=== PATIENT | female | born 2000 | race Caucasian/White ===

== ENCOUNTER 2020-04-02 18:03 | Emergency (ER) | payer MEDICAID ==
[2020-04-02] MEDS ORDERED: IBUPROFEN 600 MG TABLET PO ONE (18:43)
--- NOTE | 2020-04-02 18:44 | ER Document Report ---
HPI - HPI Patient complains to provider of: Right foot pain Time Seen by Provider: 04/02/20 18:36 Notes: 19-year-old female to the emergency department with complaints of right foot pain that began after she twisted her foot. She states she was wrestling with her significant other when she went to put her foot down off of the bed that it turned underneath her. She states that she has not been able to bear weight because when she does it really hurts. She is not taking anything for the pain since it happened. Denies any other injuries. She did not hit her head or have any loss of consciousness. - ROS Systems Reviewed and Negative: Yes All other systems reviewed and negative - CONSTITUTIONAL Constitutional: DENIES: Fever, Chills - EENT EENT: DENIES: Sore Throat, Ear Pain, Congestion - NEURO Neurology: DENIES: Headache, Weakness - CARDIOVASCULAR Cardiovascular: DENIES: Chest pain - RESPIRATORY Respiratory: DENIES: Trouble Breathing, Coughing - GASTROINTESTINAL Gastrointestinal: DENIES: Abdominal Pain, Nausea, Patient vomiting, Diarrhea - MUSCULOSKELETAL Musculoskeletal: REPORTS: Extremity pain Notes: Right foot pain - DERM Skin Color: Normal Skin Problems: None Past Medical History - General Information source: Patient - Social History Smoking Status: Never Smoker Frequency of alcohol use: None Drug Abuse: None Family History: Reviewed & Not Pertinent Vertical Provider Document - CONSTITUTIONAL Agree With Documented VS: Yes Exam Limitations: No Limitations General Appearance: WD/WN, No Apparent Distress - HEENT HEENT: Atraumatic, Normocephalic, PERRLA - NECK Neck: Normal Inspection, Supple - RESPIRATORY Respiratory: Breath Sounds Normal, No Respiratory Distress. negative: Rales, Rhonchi, Wheezing - CARDIOVASCULAR Cardiovascular: Regular Rate, Regular Rhythm, No Murmur - GI/ABDOMEN Gastrointestinal: Abdomen Soft, Abdomen Non-Tender - MUSCULOSKELETAL/EXTREMETIES Notes: There is tenderness to palpation over the dorsum of the right foot with mild edema. Patient has pain with dorsiflexion and plantar flexion. Does have reduced strength to 4 out of 5 in both of those movements likely due to pain. She can wiggle all of her toes. Cap refill is less than 2 seconds. She has no tenderness to palpation over the right knee and right hip - NEURO Level of Consciousness: Awake, Alert Motor/Sensory: No Motor Deficit, No Sensory Deficit - DERM Integumentary: Warm, Dry Course - Re-evaluation Re-evalutation: 04/02/20 19:49 Impression: Right foot sprain. X-rays negative for fracture. We will go ahead and place an Anthony wrap and on crutches. We will have her perform RICE. We will send home with NSAIDs and have her follow-up with orthopedist. Patient agrees with the plan. - Vital Signs Vital signs: Temp Pulse Resp BP Pulse Ox 99.0 F 123 H 18 123/97 H 96 04/02/20 18:15 04/02/20 18:15 04/02/20 18:15 04/02/20 18:15 04/02/20 18:15 - Laboratory Laboratory results interpreted by me: 04/02/20 Foot X-Ray 04/02/20 18:43 IMPRESSION: NEGATIVE STUDY OF THE RIGHT FOOT. NO RADIOGRAPHIC EVIDENCE OF ACUTE INJURY. - Diagnostic Test Radiology reviewed: Image reviewed, Reports reviewed Procedures - Immobilization Right Foot Time completed: 19:50 Pre-Proc Neuro Vasc Exam: Normal Immobilizer type: Anthony wrap Performed by: PCT Post-Proc Neuro Vasc Exam: Normal Alignment checked and good: Yes Discharge - Discharge Clinical Impression: Right foot pain Right foot sprain Qualifiers: Encounter type: initial encounter Qualified Code(s): S93.601A - Unspecified sprain of right foot, initial encounter Condition: Stable Disposition: HOME, SELF-CARE Instructions: Sprain ([facility]), Ice Packs ([facility]) Additional Instructions: TAKE MEDICINES PRESCRIBED. RETURN IF WORSE. ICE THE ANKLE. FOLLOW UP WITH THE ORTHOPEDIST LISTED. Prescriptions: Naproxen [Naprosyn 375 Mg Tablet] 375 mg PO BID #20 tablet Referrals: BHUPINDER CUNNINGHAM JR, DO [ACTIVE PROVISIONAL STAFF] - Follow up in 1 week (for orthopedic follow up)
--- NOTE | 2020-04-02 19:07 | RADIOLOGY REPORT (SQ) ---
EXAM DESCRIPTION: FOOT RIGHT COMPLETE IMAGES COMPLETED DATE/TIME: 04/02/2020 6:57 pm REASON FOR STUDY: foot injury COMPARISON: None. NUMBER OF VIEWS: Three views. TECHNIQUE: AP, lateral and oblique radiographic images acquired of the right foot. LIMITATIONS: None. FINDINGS: MINERALIZATION: Normal. BONES: No acute fracture or dislocation. No worrisome bone lesions. JOINTS: No effusions. SOFT TISSUES: No soft tissue swelling. No foreign body. OTHER: No other significant finding. IMPRESSION: NEGATIVE STUDY OF THE RIGHT FOOT. NO RADIOGRAPHIC EVIDENCE OF ACUTE INJURY. TECHNICAL DOCUMENTATION: JOB ID: [id number] 2010 [employer]- All Rights Reserved Reading location - IP/workstation name: [email or web address]
[2020-04-02 19:46] VITALS: BP 117/76
== END 2020-04-02 19:59 | disposition home or self-care (01) ==
LOC: ER 18:03
DX: S93.601A Unspecified sprain of right foot, initial encounter (principal); M79.671 Pain in right foot; X50.0XXA Overexertion from strenuous movement or load, initial encounter; Y93.83 Activity, rough housing and horseplay
CPT/HCPCS: 99283; 73630; J3490